=== PATIENT | female | born 1970 | race Two or more races ===

== ENCOUNTER 2016-09-12 21:53 | Emergency (ER) | payer MEDICAID ==
[~2016-09-12] VITALS: Ht 160 cm; Wt 86.2 kg
[2016-09-13 07:34] VITALS: BP 125/87
== END 2016-09-13 07:46 | disposition home or self-care (01) ==
LOC: ER 21:58
DX: S16.1XXA Strain of muscle, fascia and tendon at neck level, initial encounter (principal); S39.012A Strain of muscle, fascia and tendon of lower back, initial encounter; V49.49XA Driver injured in collision with other motor vehicles in traffic accident, initial encounter; Y93.89 Activity, other specified; Y99.8 Other external cause status; Y92.410 Unspecified street and highway as the place of occurrence of the external cause
CPT/HCPCS: 70450; 72070; 72125